=== PATIENT | female | born 1960 | race Asian ===

== ENCOUNTER 2017-05-02 06:31 | Emergency (ER) | payer OTHER ==
[~2017-05-02] VITALS: Ht 160 cm; Wt 65.8 kg
[2017-05-02 07:51] LABS: ABSOLUTE BASOPHIL COUNT 0 /CUMM (0.0-0.2); ABSOLUTE EOSINOPHIL COUNT 0.1 /CUMM (0.0-0.7); ABSOLUTE GRANULOCYTE CT 2.9 /CUMM (1.4-6.5); ABSOLUTE LYMPH COUNT 1.1 /CUMM (1.2-3.4); ABSOLUTE MONOCYTE COUNT 0.3 /CUMM (0.10-0.60); BASOPHIL % 0.6 % (0.0-2.0); EOSINOPHIL % 1.2 % (0-5); GRANULOCYTE % 67.3 % (42.2-75.2); HEMATOCRIT 34.5 % (37-47); MEAN CORPUSCULAR HGB 24.3 PG (27.0-31.0); MEAN CORPUSCULAR VOLUME 75.9 FL (81.0-99.0); MEAN PLATELET VOLUME 8.5 FL (7.4-10.4); PLATELET COUNT 282 /CUMM (130-400); RBC DISTRIBUTION WIDTH 16.9 % (11.5-14.5); RED BLOOD CELL CT 4.55 /CUMM (4.20-5.40); WHITE BLOOD CELL COUNT 4.3 /CUMM (4.8-10.8)
--- NOTE | 2017-05-02 08:18 | ED AMS/SEIZURE/WEAK/DIZZY ---
History of Present Illness General Chief Complaint: General Adult Stated Complaint: BOLAND, DIZZINESS, CANT FALL ASLEEP PER DAUGHTER Source: patient, family Exam Limitations: language barrier Vital Signs & Intake/Output Vital Signs & Intake/Output Vital Signs Date Time Temp Pulse Resp B/P B/P Pulse O2 O2 Flow FiO2 Mean Ox Delivery Rate 05/02 0933 97.9 58 18 128/74 98 Room Air 05/02 0755 98 Room Air 05/02 0712 98.9 52 18 139/78 100 Room Air Allergies Coded Allergies: No Known Allergies (05/02/17) Reconcile Medications Meclizine HCl 25 MG TABLET 1 TAB PO TIDPRN PRN dizziness Ondansetron (Zofran Odt) 4 MG TAB.RAPDIS 1 TAB SL TID PRN nausea Scopolamine Hydrobromide (Transderm-Scop) 1.5MG/3DAY PATCH.TD.3 1 PAT TOP Q3D PRN dizziness apply to the hairless area behind 1 ear Triage Note: PT TO ED FOR ONE EPISODE OF DIZZINESS AROUND "MIDNIGHT OR TWO AM" PER ADULT CHILDREN WITH PATIENT. PT REPORTING SHE WOKE UP FEELING DIZZY WITH A HEADACHE, WORSE WITH MOVEMENT OF HER HEAD. DENIES NAUSEA, VOMITING, CHEST PAIN. REPORTING PALPITATIONS "SOMETIMES WHEN I GET DIZZY". Triage Nurses Notes Reviewed? yes Onset: Just prior to arrival Duration: hour(s):, constant, continues in ED Timing: recent history Injury Environment: home Severity: severe Modifying Factors: Improves With: immobilization, rest. Worsens With: movement. LMP (ages 10-50): post menopausal : No Patient currently breastfeeds: No HPI: 7 hours prior to admission patient awoke with dizziness left occipital headache nausea abdominal cramps. The dizziness is worse with movement of head. She denies fever chills vomiting diarrhea chest pain cough shortness of breath dysuria rash bleeding. Past History Travel History Traveled to [place] past 21 day No Medical History Any Pertinent Medical History? 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 No Review of Systems Review of Systems Constitutional: Reports: see HPI, malaise. EENTM: Reports: no symptoms. Respiratory: Reports: no symptoms. Cardiovascular: Reports: no symptoms. GI: Reports: see HPI, abdominal pain, nausea. Genitourinary: Reports: no symptoms. Musculoskeletal: Reports: no symptoms. Skin: Reports: no symptoms. Neurological/Psychological: Reports: see HPI, headache. Hematologic/Endocrine: Reports: no symptoms. Immunologic/Allergic: Reports: no symptoms. All Other Systems: Reviewed and Negative Physical Exam Physical Exam General Appearance: well developed/nourished, alert, awake, anxious, moderate distress Head: atraumatic, normal appearance Eyes: Bilateral: normal appearance, PERRL, EOMI. Ears, Nose, Throat: normal pharynx, normal ENT inspection, hearing grossly normal Neck: normal inspection, supple, full range of motion, no midline tenderness Respiratory: normal breath sounds, chest non-tender, no respiratory distress, quiet respiration, lungs clear Cardiovascular: regular rate/rhythm, normal peripheral pulses, norml femoral pulses equa Peripheral Pulses: 4+ carotid (R), 4+ carotid (L) Gastrointestinal: soft, non-tender, abnormal bowel sounds (hyperactive) Back: normal inspection, normal range of motion Extremities: normal range of motion, no ligament instability Neurologic/Psych: no motor/sensory deficits, awake, alert, oriented x 3, normal gait, normal mood/affect, breaster II-XII nml as tested, + nystagmus Reflexes: 2+: bicep (R), bicep (L). Skin: intact, normal color, warm/dry Lymphatic: no anterior cervical kat Core Measures ACS in differential dx? Yes ASA ordered for poss ACS? No-ACS ruled out CVA/TIA Diagnosis: No Severe Sepsis Present: No Septic Shock Present: No Progress Differential Diagnosis: arrythmia, benign positional vertigo, CVA/stroke, electrolyte imbalance, hypoglycemia, labrynthitis, migraine BOLAND Plan of Care: Orders Procedure Date/time Status TROPONIN LEVEL 05/02 0728 Complete MAGNESIUM 05/02 0728 Complete COMPREHENSIVE METABOLIC PANEL 05/02 728 Complete CBC WITHOUT DIFFERENTIAL 05/02 728 Complete EKG 05/02 0712 Active Laboratory Tests 05/02/17 0740: Anion Gap 9, Estimated GFR > 60, BUN/Creatinine Ratio 18.3, Glucose 99, Calcium 9.1, Magnesium 2.0, Total Bilirubin 0.4, AST 19, ALT 36, Alkaline Phosphatase 52 , Troponin I < 0.01, Total Protein 7.4, Albumin 4.2, Globulin 3.2, Albumin/ Globulin Ratio 1.3, CBC w Diff NO MAN DIFF REQ, RBC 4.55, MCV 75.9 L, MCH 24.3 L, RDW 16.9 H, MPV 8.5, Gran % 67.3, Lymphocytes % 24.7, Monocytes % 6.2, Eosinophils % 1.2, Basophils % 0.6, Absolute Granulocytes 2.9, Absolute Lymphocytes 1.1 L, Absolute Monocytes 0.3, Absolute Eosinophils 0.1, Absolute Basophils 0, PUBS MCHC 32.0 L Diagnostic Imaging: Viewed by Me: CT Scan. Discussed w/RAD: CT Scan. Radiology Impression: no acute abnormality, 1. There is no evidence of a recent intracranial hemorrhage. 2. No acute infarct. 3. No etiology for left occipital headache. No fluid level Initial ED EKG: normal axis, normal intervals, normal p-waves, normal QRS complex, rate (sinus bradycardia) Rhythm Strip: sinus bradycardia Departure Departure Time of Disposition: 930 Disposition: HOME OR SELF CARE Condition: Stable Clinical Impression Primary Impression: Vertigo, benign positional Qualifiers: Laterality: unspecified laterality Qualified Code: H81.10 - Benign paroxysmal vertigo, unspecified ear Referrals: PATIENT HAS NO PRIMARY CARE DR (PCP/Family) Departure Forms: Customer Survey General Discharge Information Prescriptions: Current Visit Scripts Scopolamine Hydrobromide (Transderm-Scop) 1 PAT TOP Q3D PRN dizziness #4 PAT apply to the hairless area behind 1 ear Meclizine HCl 1 TAB PO TIDPRN PRN dizziness #30 TAB Ondansetron (Zofran Odt) 1 TAB SL TID PRN nausea #10 TAB
--- NOTE | 2017-05-02 09:00 | CT SCAN REPORT ---
EXAMINATION: CT HEAD WITHOUT CONTRAST CLINICAL INFORMATION: Vertigo. Dizziness. Left occipital headache COMPARISON: None. TECHNIQUE: Multidetector CT examination of the head is performed without contrast. DLP: 567 mGy-cm FINDINGS: There is no evidence of a recent intracranial hemorrhage or extra-axial collection. The midline structures are nondisplaced. The ventricles, cisterns, and sulci are within normal limits. There is no evidence of an intra-axial mass. There are no suspicious focal areas of abnormal brain attenuation. The krishnan-white interface is within normal limits. There is no evidence of acute territorial infarct. The paranasal sinuses and mastoids are within normal limits. . No widening of the internal auditory canals Nonspecific density in the scalp of the left convexity IMPRESSION: 1. There is no evidence of a recent intracranial hemorrhage. 2. No acute infarct. 3. No etiology for left occipital headache. No fluid level
[2017-05-02 09:33] VITALS: BP 128/74
[2017-05-02] MEDS ORDERED: TRANSDERM-SCOP1 EACH TOP ×2 (09:33→10:48)
[2017-05-02] MEDS ORDERED: MECLIZINE HCL25 MG PO ×2 (09:33→10:48)
[2017-05-02] MEDS ORDERED: ZOFRAN ODT4 M1 SL ×2 (09:33→10:48)
== END 2017-05-02 09:43 ==
LOC: ERH 06:31
PROVIDERS: Emergency Medicine
DX: H81.10 Benign paroxysmal vertigo, unspecified ear (principal); R10.9 Unspecified abdominal pain; R11.0 Nausea
CPT/HCPCS: 93005; 93010; 96361; 96374; 96375; J0131; J2405